=== PATIENT | female | born 1985 | race Asian ===

== ENCOUNTER 2022-04-25 13:21 | Outpatient (CLI) | payer BC | END 2022-04-25 13:22 | disposition home or self-care (01) | LOC: CSHLAB 13:21 | PROVIDERS: ATTEND Obstetrics & Gynecology | DX: Z20.822 Contact with and (suspected) exposure to COVID-19 (principal) | CPT/HCPCS: 87811 ==

== ENCOUNTER 2022-04-28 04:43 | Day surgery (SDC) | payer BC ==
[2022-04-28] MEDS ORDERED: hydrALAZINE 20 MG/ML VIAL SLOW IVP PRN (07:29)
== END 2022-04-28 07:40 | disposition home or self-care (01) ==
LOC: CSHLD/OP 04:43
PROVIDERS: ATTEND Obstetrics & Gynecology
DX: O47.1 False labor at or after 37 completed weeks of gestation (principal); O48.0 Post-term pregnancy; Z3A.40 40 weeks gestation of pregnancy
CPT/HCPCS: 99283

== ENCOUNTER 2022-04-29 06:00 | Inpatient (IN) | payer BC ==
[2022-04-29] MEDS ORDERED: NS w/ Oxytocin 30 units 500 ML ONE (08:10)
[2022-04-29] MEDS ORDERED: NS w/ Oxytocin 30 units 500 ML IV SCH ×3 (09:19→18:11)
[2022-04-29] MEDS ORDERED: Ibuprofen 800 MG TAB PO PRN (09:19)
[2022-04-29] MEDS ORDERED: Lidocaine 1% (PF) 30 ML VIAL SC PRN (09:19)
[2022-04-29] MEDS ORDERED: HYDROcodone/Acetaminophen 5/325 mg Tablet PO PRN ×3 (09:19→18:11)
[2022-04-29] MEDS ORDERED: Butorphanol Tartrate 1 MG/ML VIAL SLOW IVP PRN (09:19)
[2022-04-29] MEDS ORDERED: Ondansetron PF 4 MG/2 ML Vial IVP PRN ×3 (09:19→18:11)
[2022-04-29] MEDS ORDERED: Promethazine HCl 25 MG/ML VIAL IM PRN ×2 (09:19→11:12)
[2022-04-29] MEDS ORDERED: hydrALAZINE 20 MG/ML VIAL SLOW IVP PRN ×2 (09:19→18:11)
[2022-04-29] MEDS ORDERED: Lactated Ringer's 1,000 ML IV SCH (09:19)
[2022-04-29 09:38] LABS: Hemoglobin 11.3 g/dL (12.0-15.5); Mean Corpuscular HGB CONC 34.1 g/dL (32.0-36.0); Mean Corpuscular Hemoglobin 33.7 pg (27.0-33.0); Mean Corpuscular Volume 98.8 fl (81.6-98.3); Mean Platelet Volume 10.5 fl (7.4-10.4); Platelet Count 200 10x3/uL (150-450); RBC Distribution Width 13.7 % (11.5-14.5); Red Blood Cell (RBC) Count 3.35 10x6/uL (3.90-5.03); White Blood Cell (WBC) Count 10.7 10x3/uL (3.5-10.5)
[2022-04-29 09:58] LABS: Syphilis Antibody Nonreactive (Nonreactive); Syphilis Antibody Index 0.03 S/CO (<1.00 Non-Reactive)
[2022-04-29 09:59] LABS: Hep B Surf Ag Non-Reactive S/CO (NonReactive)
[2022-04-29 10:00] LABS: HBSAg Index 0.19 S/CO (0-0.99)
[2022-04-29] MEDS ORDERED: Fentanyl 2 mcg/Bup 0.1% Cadd 100 ML ONE (10:31)
[2022-04-29 10:39] VITALS: BMI 26.5
[2022-04-29] MEDS ORDERED: ePHEDrine Sulfate 50 MG/10 ML VIAL SLOW IVP PRN (11:12)
[2022-04-29] MEDS ORDERED: Lactated Ringer's 500 ML IV PRN (11:12)
[2022-04-29] MEDS ORDERED: Naloxone HCl 0.4 mg/ml Vial IVP PRN ×2 (11:12)
[2022-04-29] MEDS ORDERED: diphenhydrAMINE 50 MG/ML VIAL IVP PRN (11:12)
[2022-04-29] MEDS ORDERED: Acetaminophen 325 MG TAB PO PRN (11:12)
[2022-04-29] MEDS ORDERED: Moisturizing Cream (Eucerin) 113 GM JAR TOP PRN (11:12)
[2022-04-29] MEDS ORDERED: Fentanyl 2 mcg/Bupivacaine 0.1% Cassette 100 ML EPIDURAL SCH (11:15)
[2022-04-29] MEDS ORDERED: Communication Order-Pharmacy FS SCH (11:15)
[2022-04-29] MEDS ORDERED: diphenhydrAMINE 25 MG CAP PO PRN (18:11)
[2022-04-29] MEDS ORDERED: Lanolin Ointment 7 GM TUBE TOP PRN (18:11)
[2022-04-29] MEDS ORDERED: Bisacodyl 10 MG SUPP PR PRN (18:11)
[2022-04-29] MEDS ORDERED: Preparation H Ointment 28 GM TUBE PR PRN (18:11)
[2022-04-29] MEDS ORDERED: Boostrix 0.5 ML (Tdap) VIAL IM ONE (18:11)
[2022-04-29] MEDS ORDERED: Milk Of Magnesia 30 ML UDCUP PO PRN (18:11)
[2022-04-29] MEDS ORDERED: Benzocaine-Menthol 82.5 ML CAN TOP PRN (18:11)
[2022-04-29] MEDS ORDERED: Ferrous Sulfate 325 MG TAB PO SCH (18:30)
[2022-04-29] MEDS: Ibuprofen 800 MG TAB PO SCH (20:37)
[2022-04-29] MEDS: Docusate 100 MG CAP PO SCH (20:38)
[2022-04-30] MEDS: Ibuprofen 800 MG TAB PO SCH ×3 (05:10→21:22)
[2022-04-30] MEDS: Ferrous Sulfate 325 MG TAB PO SCH ×2 (07:14→17:09)
[2022-04-30] MEDS: Docusate 100 MG CAP PO SCH ×2 (08:04→21:22)
[2022-04-30] MEDS: Prenatal Vitamin 1 TAB PO SCH (08:04)
[2022-05-01] MEDS: HYDROcodone/Acetaminophen 5/325 mg Tablet PO PRN ×2 (01:50→10:16)
[2022-05-01] MEDS: Ibuprofen 800 MG TAB PO SCH (06:07)
[2022-05-01] MEDS: Prenatal Vitamin 1 TAB PO SCH (10:17)
[2022-05-01] MEDS: Docusate 100 MG CAP PO SCH (10:18)
[2022-05-01] MEDS: Ferrous Sulfate 325 MG TAB PO SCH (10:19)
[2022-05-01 11:40] VITALS: BP 106/60; TEMP 98.7
== END 2022-05-01 13:30 | disposition home or self-care (01) | DRG 807 ==
LOC: CSHLD 06:27 → CSHPP 18:05
PROVIDERS: ADMIT Obstetrics & Gynecology; ATTEND Obstetrics & Gynecology
PROC: 10E0XZZ Delivery of Products of Conception, External Approach (ICD-10-PCS; principal; 2022-04-29)
PROC: 0KQM0ZZ Repair Perineum Muscle, Open Approach (ICD-10-PCS; 2022-04-29)
PROC: 3E033VJ Introduction of Other Hormone into Peripheral Vein, Percutaneous Approach (ICD-10-PCS; 2022-04-29)
PROC: 10907ZC Drainage of Amniotic Fluid, Therapeutic from Products of Conception, Via Natural or Artificial Opening (ICD-10-PCS; 2022-04-29)
DX: O48.0 Post-term pregnancy (principal); Z37.0 Single live birth; Z3A.41 41 weeks gestation of pregnancy; O69.81X0 Labor and delivery complicated by cord around neck, without compression, not applicable or unspecified; O70.1 Second degree perineal laceration during delivery; O71.82 Other specified trauma to perineum and vulva
CPT/HCPCS: 36415; 51702; 85027; 86780; 86850; 86900; 86901; 87340; 99283; J2590